=== PATIENT | male | born 1955 | race Caucasian/White ===

== ENCOUNTER 2020-08-09 07:03 | Inpatient (IN) | payer BC, SELFPAY ==
[~2020-08-09] VITALS: Ht 167.6 cm; Wt 81.6 kg
[2020-08-09 07:14] VITALS: BP_SYST 153; BP_DIAS 180; BP_DIAS 97
[2020-08-09] MEDS ORDERED: ASPIRIN 81 MG TAB.CHEW PO ONE (07:40)
[2020-08-09] MEDS ORDERED: FAMOTIDINE 20 MG TAB PO ONE (07:40)
[2020-08-09] MEDS ORDERED: ALUMINUM HYD/MAG/SIMETHICONE 30 ML UDC PO ONE (07:40)
[2020-08-09 08:06] LABS: BASOPHILS % (AUTO) 0.2 % (0.0-2.0); EOSINOPHILS % (AUTO) 0.3 % (0.0-4.0); HEMATOCRIT 50.7 % (36-52); HEMOGLOBIN 17.5 g/dL (12.0-18.0); LYMPHOCYTES # (AUTO) 1.5 K/uL (2.0-11.5); LYMPHOCYTES % (AUTO) 15.1 % (20.5-51.1); MEAN CORPUSCULAR HEMOGLOBIN 30 pg (27-31); MEAN CORPUSCULAR HGB CONC 35 g/dL (33-37); MEAN CORPUSCULAR VOLUME 87.9 fL (80-94); MONOCYTES # (AUTO) 0.3 K/uL (0.8-1.0); NEUTROPHILS # (AUTO) 8.1 K/uL (1.8-7.7); NEUTROPHILS % (AUTO) 81.4 % (42.2-75.2); PLATELET COUNT (AUTO) 217 K/uL (140-450); RED BLOOD CELL COUNT(AUTO) 5.76 MIL/uL (4.20-6.10); RED CELL DISTRIBUTION WIDTH 13.7 % (11.6-13.7); WHITE BLOOD COUNT (AUTO) 9.9 K/uL (4.8-10.8)
[2020-08-09 08:26] LABS: ALBUMIN 3.9 g/dL (3.4-5.0); CARBON DIOXIDE 24.9 mmol/L (21-32); CREATININE 1.2 mg/dL (0.6-1.3); POTASSIUM 4.9 mmol/L (3.5-5.1); TOTAL BILIRUBIN 0.6 mg/dL (0.0-1.0)
[2020-08-09] MEDS ORDERED: HEPARIN PER PHARMACY MC SCH (08:45)
[2020-08-09] MEDS ORDERED: hePARIN / DEXT 5% PREMIX 250 ML IV SCH (08:45)
[2020-08-09] MEDS ORDERED: ONDANSETRON 4 MG/2 ML VIAL IVP ONE (09:00)
[2020-08-09] MEDS ORDERED: fentaNYL citrate 0.05 MG/ML VIAL IVP ONE (09:00)
[2020-08-09] MEDS: NACL 0.9% 1,000 ML IV SCH ×2 (09:00→22:58)
[2020-08-09 09:12] LABS: PROTHROMBIN TIME 9.9 secs (10.8-13.4)
[2020-08-09 10:30] VITALS: BP 134/77
[2020-08-09] MEDS: hePARIN / DEXT 5% PREMIX 250 ML IV SCH ×2 (11:06→18:16)
[2020-08-09] MEDS ORDERED: HYDROcodone/APAP 5/325 MG 1 TAB TAB PO PRN (13:15)
[2020-08-09] MEDS ORDERED: LORazepam 2 MG/ML VIAL IM/IVP PRN (13:15)
[2020-08-09] MEDS ORDERED: MAG SULF 2000 MG/WATER PREMIX 50 ML IV PRN (13:15)
[2020-08-09] MEDS ORDERED: MORPHINE SULFATE 2 MG/ML SYR IVP PRN (13:15)
[2020-08-09] MEDS ORDERED: DOCUSATE SODIUM 100 MG GELCAP PO PRN (13:15)
[2020-08-09] MEDS ORDERED: ZOLPIDEM 5 MG TAB PO PRN (13:15)
[2020-08-09] MEDS ORDERED: POTASSIUM CHLORIDE 10 MEQ TABER PO PRN (13:15)
[2020-08-09] MEDS ORDERED: ONDANSETRON 4 MG/2 ML VIAL IM/IVP PRN (13:15)
[2020-08-09 13:43] LABS: MAGNESIUM 1.7 mg/dL (1.8-2.4); PHOSPHORUS 2.1 mg/dL (2.5-4.9); THYROID STIMULATING HORMONE 2.85 uIU/mL (0.34-3.74)
[2020-08-09 14:17] LABS: APPEARANCE,URINE CLEAR (CLEAR); BILIRUBIN,URINE NEGATIVE (NEGATIVE); BLOOD, URINE TRACE-I (NEGATIVE); COLOR,URINE YELLOW (YELLOW); LEUKOCYTE ESTERASE ,URINE 2+ (NEGATIVE); NITRITE, URINE NEGATIVE (NEGATIVE); PH,URINE 5.5 (5.0-9.0); UGLUCOSE NEGATIVE (NEGATIVE)
[2020-08-09 14:35] LABS: RBC,URINE 0-5 /HPF (0-5)
[2020-08-09 14:40] LABS: BARBITURATE, URINE NEGATIVE ng/ml (NEG <=200); BENZODIAZEPINE, URINE NEGATIVE ng/mL (NEG <=200); CANNABINOID, URINE NEGATIVE ng/mL (NEG <=50); COCAINE, URINE NEGATIVE ng/mL (NEG <=300); OPIATE, URINE NEGATIVE ng/mL (NEG <=2000); PHENCYCLIDINE SCREEN,URINE NEGATIVE ng/mL (NEG <=25)
[2020-08-09] MEDS ORDERED: SODIUM PHOSPHATE 15 MMOLE in NACL 0.9% 250 ML IV SCH (15:30)
[2020-08-09 16:00] VITALS: BP 143/79
[2020-08-09 20:00] VITALS: BP 153/97
[2020-08-09] MEDS: carvediloL 6.25 MG TAB PO SCH (20:12)
[2020-08-09] MEDS: ATORVASTATIN 20 MG TAB PO SCH (20:13)
[2020-08-09] MEDS ORDERED: ATORVASTATIN 20 MG TAB PO SCH (21:00)
[2020-08-09] MEDS ORDERED: METOPROLOL 25 MG TAB PO SCH (21:00)
[2020-08-10] VITALS: BP 150/88
[2020-08-10] MEDS: hePARIN / DEXT 5% PREMIX 250 ML IV SCH ×2 (00:30→12:47)
[2020-08-10] MEDS: NITROGLYCERIN 0.4 MG TAB SL PRN ×2 (03:53→04:07)
[2020-08-10 04:00] VITALS: BP 128/79
[2020-08-10 06:34] LABS: BASOPHILS % (AUTO) 0.3 % (0.0-2.0); EOSINOPHILS # (AUTO) 0.1 K/uL (0-0.4); EOSINOPHILS % (AUTO) 0.7 % (0.0-4.0); HEMATOCRIT 49.7 % (36-52); HEMOGLOBIN 16.7 g/dL (12.0-18.0); LYMPHOCYTES # (AUTO) 2.5 K/uL (2.0-11.5); LYMPHOCYTES % (AUTO) 20.8 % (20.5-51.1); MEAN CORPUSCULAR HEMOGLOBIN 30 pg (27-31); MEAN CORPUSCULAR HGB CONC 34 g/dL (33-37); MEAN CORPUSCULAR VOLUME 88.7 fL (80-94); MONOCYTES # (AUTO) 0.8 K/uL (0.8-1.0); MONOCYTES % (AUTO) 6.9 % (1.7-9.3); NEUTROPHILS # (AUTO) 8.5 K/uL (1.8-7.7); NEUTROPHILS % (AUTO) 71.3 % (42.2-75.2); PLATELET COUNT (AUTO) 194 K/uL (140-450); WHITE BLOOD COUNT (AUTO) 11.8 K/uL (4.8-10.8)
[2020-08-10 06:42] LABS: ANION GAP 12.6 (8-16); CARBON DIOXIDE 27.1 mmol/L (21-32); CREATININE 1.1 mg/dL (0.6-1.3); POTASSIUM 4.7 mmol/L (3.5-5.1)
[2020-08-10 06:56] LABS: CHOL/HDL RATIO 5.6 (1-4.5); MAGNESIUM 2.1 mg/dL (1.8-2.4)
[2020-08-10 08:00] VITALS: BP 114/72
[2020-08-10 08:06] LABS: T4 (THYROXINE) 8.3 ug/dL (4.5-12.0)
[2020-08-10] MEDS: carvediloL 6.25 MG TAB PO SCH ×2 (09:15→20:25)
[2020-08-10] MEDS: ASPIRIN 81 MG TAB.CHEW PO SCH (09:15)
[2020-08-10] MEDS: lisinopriL 5 MG TAB PO SCH (09:15)
[2020-08-10 12:00] VITALS: BP 115/74
[2020-08-10] MEDS: NACL 0.9% 1,000 ML IV SCH (12:46)
[2020-08-10 16:00] VITALS: BP 123/75
[2020-08-10 20:00] VITALS: BP 111/65
[2020-08-10] MEDS: ATORVASTATIN 20 MG TAB PO SCH (20:24)
[2020-08-10] MEDS: ACETAMINOPHEN 325 MG TAB PO PRN (20:25)
[2020-08-11] VITALS: BP 91/57
[2020-08-11] MEDS: hePARIN / DEXT 5% PREMIX 250 ML IV SCH (01:02)
[2020-08-11] MEDS: NACL 0.9% 1,000 ML IV SCH ×2 (03:07→17:57)
[2020-08-11 04:00] VITALS: BP 103/66
[2020-08-11 06:18] LABS: ANION GAP 10.4 (8-16); BASOPHILS % (AUTO) 0.2 % (0.0-2.0); CARBON DIOXIDE 24.6 mmol/L (21-32); EOSINOPHILS # (AUTO) 0.1 K/uL (0-0.4); EOSINOPHILS % (AUTO) 0.6 % (0.0-4.0); HEMATOCRIT 46.5 % (36-52); HEMOGLOBIN 15.8 g/dL (12.0-18.0); LYMPHOCYTES # (AUTO) 2.9 K/uL (2.0-11.5); LYMPHOCYTES % (AUTO) 26.9 % (20.5-51.1); MEAN CORPUSCULAR HEMOGLOBIN 30 pg (27-31); MEAN CORPUSCULAR HGB CONC 34 g/dL (33-37); MEAN CORPUSCULAR VOLUME 88.8 fL (80-94); MONOCYTES % (AUTO) 9.2 % (1.7-9.3); NEUTROPHILS # (AUTO) 6.8 K/uL (1.8-7.7); NEUTROPHILS % (AUTO) 63.1 % (42.2-75.2); PLATELET COUNT (AUTO) 170 K/uL (140-450); RED BLOOD CELL COUNT(AUTO) 5.24 MIL/uL (4.20-6.10); WHITE BLOOD COUNT (AUTO) 10.8 K/uL (4.8-10.8)
[2020-08-11 06:24] LABS: PHOSPHORUS 2.9 mg/dL (2.5-4.9)
[2020-08-11] MEDS: lisinopriL 5 MG TAB PO SCH (09:00)
[2020-08-11] MEDS: carvediloL 6.25 MG TAB PO SCH ×2 (09:00→20:14)
[2020-08-11] MEDS: ASPIRIN 81 MG TAB.CHEW PO SCH (09:00)
[2020-08-11 20:00] VITALS: BP 107/68
[2020-08-11] MEDS: ACETAMINOPHEN 325 MG TAB PO PRN (20:12)
[2020-08-11] MEDS: ATORVASTATIN 20 MG TAB PO SCH (20:18)
[2020-08-11] MEDS ORDERED: CLOPIDOGREL 75 MG TAB PO SCH (21:00)
[2020-08-12] VITALS: BP 94/60
[2020-08-12 04:00] VITALS: BP 97/54
[2020-08-12 05:54] LABS: BASOPHILS % (AUTO) 0.1 % (0.0-2.0); EOSINOPHILS # (AUTO) 0.1 K/uL (0-0.4); EOSINOPHILS % (AUTO) 0.6 % (0.0-4.0); HEMATOCRIT 44.7 % (36-52); HEMOGLOBIN 15.4 g/dL (12.0-18.0); LYMPHOCYTES # (AUTO) 2.7 K/uL (2.0-11.5); LYMPHOCYTES % (AUTO) 24.9 % (20.5-51.1); MEAN CORPUSCULAR HEMOGLOBIN 30 pg (27-31); MEAN CORPUSCULAR HGB CONC 35 g/dL (33-37); MEAN CORPUSCULAR VOLUME 87.5 fL (80-94); MONOCYTES # (AUTO) 1.1 K/uL (0.8-1.0); NEUTROPHILS % (AUTO) 64.4 % (42.2-75.2); PLATELET COUNT (AUTO) 172 K/uL (140-450); RED BLOOD CELL COUNT(AUTO) 5.11 MIL/uL (4.20-6.10)
[2020-08-12 06:10] LABS: ANION GAP 16.4 (8-16); CARBON DIOXIDE 23.5 mmol/L (21-32); CREATININE 1.1 mg/dL (0.6-1.3); PHOSPHORUS 3.2 mg/dL (2.5-4.9); POTASSIUM 3.9 mmol/L (3.5-5.1)
[2020-08-12 08:00] VITALS: BP 104/77
[2020-08-12] MEDS: NACL 0.9% 1,000 ML IV SCH (08:22)
[2020-08-12] MEDS ORDERED: CLOPIDOGREL 75 MG TAB PO SCH (09:00)
[2020-08-12] MEDS ORDERED: carvediloL 3.125 MG TAB PO SCH (09:03)
[2020-08-12] MEDS: ASPIRIN 81 MG TAB.CHEW PO SCH (09:39)
[2020-08-12] MEDS: lisinopriL 5 MG TAB PO SCH (09:40)
[2020-08-12] MEDS ORDERED: CARV3.122 PO (10:34)
[2020-08-12] MEDS ORDERED: LISI-648 PO (10:34)
[2020-08-12] MEDS ORDERED: CLOP75TA55 PO (10:34)
[2020-08-12] MEDS ORDERED: ATOR20TA40 PO (10:34)
[2020-08-12] MEDS ORDERED: ASPI81CT95 PO (10:34)
[2020-08-12 12:00] VITALS: BP 90/52
[2020-08-12 12:25] VITALS: BP 90/52
== END 2020-08-12 13:00 | disposition home or self-care (01) | DRG 281 ==
LOC: MED 07:03 → MTU 08:48
DX: I21.4 Non-ST elevation (NSTEMI) myocardial infarction (principal); E87.1 Hypo-osmolality and hyponatremia; N39.0 Urinary tract infection, site not specified; I25.10 Atherosclerotic heart disease of native coronary artery without angina pectoris; E83.39 Other disorders of phosphorus metabolism; E83.42 Hypomagnesemia; E66.9 Obesity, unspecified; Z20.822 Contact with and (suspected) exposure to COVID-19; E78.5 Hyperlipidemia, unspecified; K21.9 Gastro-esophageal reflux disease without esophagitis; Z68.29 Body mass index [BMI] 29.0-29.9, adult
CPT/HCPCS: 36415; 71045; 76770; 80048; 80053; 80305; 81001; 82150; 83036; 83690; 83735; 83880; 84100; 84134; 84436; 84443; 84484; 85025; 85610; 85730; 87040; 87081; 87086; 93005; 96374; 96375; 99291; J0696; J1644; J2405; J3010; J3475; J7030; J7060